=== PATIENT | male | born 1970 | race African-American/Black ===

== ENCOUNTER 2024-04-05 21:24 | Emergency (ER) | payer SELFPAY ==
[2024-04-05 23:08] LABS: #Basophils 0.2 thou/uL (0.0-0.2); #Lymphocytes 2.3 thou/uL (1.20-3.40); #Monocytes 1.2 thou/uL (0.11-0.59); #Neutrophils 11.3 thou/uL (1.40-6.50); %Basophils 1.4 % (0.0-1.0); %Lymphocytes 15.3 % (21.0-51.0); %Neutrophils 75.4 % (42.0-75.0); Anisocytosis SLIGHT = 6-15 cells (100X) (0-5/hpf); Hematocrit 48.9 % (42.0-52.0); Hemoglobin 14.2 g/dL (14.0-18.0); MDiff Complete? YES; Mean Corpuscular Hemoglobin 20.9 pg (27.0-31.0); Mean Corpuscular Volume 72.1 fl (78.0-98.0); Mean Platelet Volume 9.4 fL (7.4-10.4); Ovalocytes SLIGHT = 2-5 cells (100X) (0-1/hpf); Platelet Adequacy Comment Appears Adequate; Platelet Count 248 10x3/uL (130-400); RBC Distribution Width 14.4 % (11.5-14.5); Red Blood Cell (RBC) Count 6.78 mill/uL (4.70-6.10); Target Cells SLIGHT = 2-5 cells (100X) (0-1/hpf); White Blood Cell (WBC) Count 14.9 10x3/uL (4.8-10.8)
[2024-04-05 23:09] LABS: ALT (SGPT) 23 U/L (8-55); AST (SGOT) 26 U/L (5-34); Albumin 4.1 g/dL (3.5-5.0); Alkaline Phosphatase 104 U/L (40-110); Anion Gap 24 mmol/L (10-20); BUN (Urea Nitrogen) 34 mg/dL (8.4-25.7); Bilirubin, Total 1.1 mg/dL (0.2-1.2); Calc. Creatinine Clearance 0 mL/min (70-130); Calcium 9.5 mg/dL (7.8-10.44); Carbon Dioxide 13 mmol/L (22-29); Chloride 102 mmol/L (98-107); Estimated GFR 29; Globulin 4.5 g/dL (2.4-3.5); Glucose 92 mg/dL (70-105); Potassium 4.3 mmol/L (3.5-5.1); Protein, Total 8.6 g/dL (6.0-8.3); Sodium 135 mmol/L (136-145)
[2024-04-05 23:10] LABS: Acetaminophen Less than 10 mcg/mL (10.0-30.0); Alcohol Less than 10.0 mg/dL (Less than 10); Magnesium 2.5 mg/dL (1.6-2.6); Salicylate Less than 8.0 mg/dL (15.0-30.0)
[2024-04-05] MEDS ORDERED: Sodium Chloride 0.9% 1,000 ML ONE (23:32)
[2024-04-05 23:48] LABS: Amphetamine Detected (NotDetected); Barbiturates Screen Not Detected (NotDetected); Benzodiazepine Screen Not Detected (NotDetected); Cocaine Metabolite Screen Detected (NotDetected); Methadone Not Detected (NotDetected); Methamphetamine Detected (NotDetected); Opiate Screen Not Detected (NotDetected); Oxycodone Screen Not Detected (NotDetected); Phencyclidine (PCP) Not Detected (NotDetected); THC/Cannabinoid Screen Not Detected (NotDetected); Tricyclic Screen Not Detected (NotDetected)
== END 2024-04-06 00:32 | disposition left against medical advice (07) ==
LOC: MADERS 21:24
DX: N17.9 Acute kidney failure, unspecified (principal); F14.10 Cocaine abuse, uncomplicated; F15.10 Other stimulant abuse, uncomplicated; F17.220 Nicotine dependence, chewing tobacco, uncomplicated
CPT/HCPCS: 36415; 80053; 80306; 80307; 83735; 83880; 85025; 99283; J7050

== ENCOUNTER 2024-04-06 15:27 | Emergency (ER) | payer SELFPAY | END 2024-04-06 16:52 | disposition home or self-care (01) | LOC: MADERS 15:27 | DX: R44.3 Hallucinations, unspecified (principal); F19.90 Other psychoactive substance use, unspecified, uncomplicated; F17.210 Nicotine dependence, cigarettes, uncomplicated | CPT/HCPCS: 99284 ==